=== PATIENT | female | born 2000 | race Caucasian/White ===

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

== ENCOUNTER 2018-01-13 14:21 | Emergency (ER) | payer MEDICAID ==
[2018-01-13 14:31] VITALS: BP 143/91
[2018-01-13] MEDS ORDERED: Ondansetron 4 MG/2 ML SDV IVPUSH ONE (14:39)
[2018-01-13] MEDS ORDERED: Sodium Chloride 0.9% 10 ML Syringe FLUSH PRN (14:39)
[2018-01-13] MEDS ORDERED: Famotidine 20 MG/2 ML SDV IVPUSH ONE (14:40)
[2018-01-13] MEDS ORDERED: Sodium Chloride 0.9% 1,000 ML IV SCH (14:45)
[2018-01-13 15:09] LABS: ACETAMINOPHEN 0 ug/mL (10-30)
[2018-01-13] MEDS ORDERED: HYDROmorphone 0.5 MG/0.5 ML SYRINGE IVPUSH ONE (15:40)
--- NOTE | 2018-01-13 15:53 | EDM.PDOC ---
ED HPI GENERAL MEDICAL PROBLEM - General Chief Complaint: Abdominal Pain Stated Complaint: POSS. OVERDOSE ON ASPIRIN Time Seen by Provider: 01/13/18 14:28 Source of Information: Reports: Patient History Limitations: Reports: No Limitations - History of Present Illness INITIAL COMMENTS - FREE TEXT/NARRATIVE: The patient presents with upper abdominal pain, nausea and vomiting. She did vomit some blood this morning. She says she has been dealing with a tooth infection to the right upper jaw. She took 7 extra strength tylenol last night and then at 4 and 5 am she took 3 and 2 tylenol. She then woke up at 11 am with the pain and vomiting. She went to the clinic and they called poison control and they recommend she come here to be evaluated and get a tylenol level. She has no fever, chills, cough, chest pain or shortness of breath. She developed the dental pain a few days ago. She does not have a dentist here. She did not take anything else such as aspirin. Onset: Gradual Duration: Hour(s): Location: Reports: Abdomen Quality: Reports: Sharp Severity: Mild Improves with: Reports: None Worsens with: Reports: None Associated Symptoms: Reports: Nausea/Vomiting. Denies: Chest Pain, Cough, Fever /Chills, Headaches, Shortness of Breath Epigastric Pain Score (Numeric/FACES): 6 - Related Data Allergies Allergy/AdvReac Type Severity Reaction Status Date / Time No Known Allergies Allergy Verified 01/13/18 14:31 Home Meds: Home Meds Penicillin V Potassium 500 mg PO Q6HR #40 tab 01/13/18 [Rx] traMADol HCl [Ultram] 50 - 100 mg PO Q6HR PRN #20 tablet 01/13/18 [Rx] Past Medical History - Past Health History Medical/Surgical History: Denies Medical/Surgical History Social & Family History - Tobacco Use Smoking Status *Q: Current Every Day Smoker Years of Tobacco use: 2 Packs/Tins Daily: 0.5 Used Tobacco, but Quit: No - Caffeine Use Caffeine Use: Reports: Soda - Recreational Drug Use Recreational Drug Use: No - Living Situation & Occupation Living situation: Reports: Single Occupation: Employed ED ROS GENERAL - Review of Systems Review Of Systems: See Below Constitutional: Reports: No Symptoms HEENT: Reports: Dental Pain Respiratory: Reports: No Symptoms Cardiovascular: Reports: No Symptoms Endocrine: Reports: No Symptoms GI/Abdominal: Reports: Abdominal Pain, Hematemesis, Nausea, Vomiting : Reports: No Symptoms Musculoskeletal: Reports: No Symptoms ED EXAM, GI/ABD - Physical Exam Exam: See Below Exam Limited By: No Limitations General Appearance: Alert, No Apparent Distress Ears: Normal External Exam Nose: Normal Inspection Throat/Mouth: Other (Erythema and edema with pain upon palpation to the right upper gum line) Course - Vital Signs Last Recorded V/S: Last Vital Signs Temp 97.3 F 01/13/18 14:28 Pulse 99 01/13/18 14:28 Resp 18 01/13/18 14:28 BP 143/91 H 01/13/18 14:28 Pulse Ox 100 01/13/18 14:28 - Orders/Labs/Meds Orders: Active Orders 24 hr Category Date Time Status Peripheral IV Care [RC] . DIRECTED Care 01/13/18 14:39 Active Sodium Chloride 0.9% [Normal Saline] 1,000 ml Med 01/13/18 14:45 Active IV ASDIRECTED Sodium Chloride 0.9% [Saline Flush] Med 01/13/18 14:39 Active 10 ml FLUSH ASDIRECTED PRN ED Antiemetic Medication Reflex [OM.PC] Stat Oth 01/13/18 14:39 Ordered Peripheral IV Insertion Adult [OM.PC] Stat Oth 01/13/18 14:39 Ordered Medication Orders Sodium Chloride (Normal Saline) 1,000 mls @ 125 mls/hr IV ASDIRECTED ANNIE Last Admin: 01/13/18 14:51 Dose: 125 mls/hr Sodium Chloride (Saline Flush) 10 ml FLUSH ASDIRECTED PRN PRN Reason: Keep Vein Open Last Admin: 01/13/18 14:56 Dose: 10 ml Labs: Laboratory Tests 01/13/18 01/13/18 01/13/18 Range/Units 14:38 14:38 14:38 WBC 6.82 (3.98-10.04) K/mm3 RBC 4.37 (3.98-5.22) M/mm3 Hgb 14.4 (11.2-15.7) gm/L Hct 41.3 (34.1-44.9) % MCV 94.5 (79.4-94.8) fl MCH 33.0 H (25.6-32.2) pg MCHC 34.9 (32.2-35.5) g/dl RDW Std Deviation 45.1 (36.4-46.3) fL Plt Count 304 (182-369) K/mm3 MPV 8.6 L (9.4-12.3) fl Neut % (Auto) 76.2 H (34.0-71.1) % Lymph % (Auto) 18.3 L (19.3-51.7) % [place] % (Auto) 4.8 (4.7-12.5) % Eos % (Auto) 0.3 L (0.7-5.8) Baso % (Auto) 0.3 (0.1-1.2) % Neut # (Auto) 5.19 (1.56-6.13) K/mm3 Lymph # (Auto) 1.25 (1.18-3.74) K/mm3 [place] # (Auto) 0.33 (0.24-0.36) K/mm3 Eos # (Auto) 0.02 L (0.04-0.36) K/mm3 Baso # (Auto) 0.02 (0.01-0.08) K/mm3 Sodium 140 (136-145) mEq/L Potassium 4.1 (3.5-5.1) mEq/L Chloride 104 (98-107) mEq/L Carbon Dioxide 23 (21-32) mEq/L Anion Gap 17.1 H (5-15) BUN 8 (7-18) mg/dL Creatinine 0.6 (0.55-1.02) mg/dL Est Cr Clr Drug Dosing 130.23 mL/min Estimated GFR (MDRD) > 60 (>60) mL/min BUN/Creatinine Ratio 13.3 L (14-18) Glucose 124 H (74-106) mg/dL Calcium 9.7 (8.5-10.1) mg/dL Total Bilirubin 1.4 H (0.2-1.0) mg/dL AST 38 H (15-37) U/L ALT 43 (14-59) U/L Alkaline Phosphatase 86 (46-116) U/L Total Protein 8.2 (6.4-8.2) g/dl Albumin 4.6 (3.4-5.0) g/dl Globulin 3.6 gm/dL Albumin/Globulin Ratio 1.3 (1-2) Lipase 65 L (73-393) U/L HCG, Qual Negative (NEGATIVE) Salicylates (2.8-20) mg/dL Acetaminophen 0 L (10-30) ug/mL 01/13/18 Range/Units 14:38 WBC (3.98-10.04) K/mm3 RBC (3.98-5.22) M/mm3 Hgb (11.2-15.7) gm/L Hct (34.1-44.9) % MCV (79.4-94.8) fl MCH (25.6-32.2) pg MCHC (32.2-35.5) g/dl RDW Std Deviation (36.4-46.3) fL Plt Count (182-369) K/mm3 MPV (9.4-12.3) fl Neut % (Auto) (34.0-71.1) % Lymph % (Auto) (19.3-51.7) % [place] % (Auto) (4.7-12.5) % Eos % (Auto) (0.7-5.8) Baso % (Auto) (0.1-1.2) % Neut # (Auto) (1.56-6.13) K/mm3 Lymph # (Auto) (1.18-3.74) K/mm3 [place] # (Auto) (0.24-0.36) K/mm3 Eos # (Auto) (0.04-0.36) K/mm3 Baso # (Auto) (0.01-0.08) K/mm3 Sodium (136-145) mEq/L Potassium (3.5-5.1) mEq/L Chloride (98-107) mEq/L Carbon Dioxide (21-32) mEq/L Anion Gap (5-15) BUN (7-18) mg/dL Creatinine (0.55-1.02) mg/dL Est Cr Clr Drug Dosing mL/min Estimated GFR (MDRD) (>60) mL/min BUN/Creatinine Ratio (14-18) Glucose (74-106) mg/dL Calcium (8.5-10.1) mg/dL Total Bilirubin (0.2-1.0) mg/dL AST (15-37) U/L ALT (14-59) U/L Alkaline Phosphatase (46-116) U/L Total Protein (6.4-8.2) g/dl Albumin (3.4-5.0) g/dl Globulin gm/dL Albumin/Globulin Ratio (1-2) Lipase (73-393) U/L HCG, Qual (NEGATIVE) Salicylates 1.5 L (2.8-20) mg/dL Acetaminophen (10-30) ug/mL Meds: Medications Generic Name Dose Route Start Last Admin Trade Name Freq PRN Reason Stop Dose Admin Sodium Chloride 1,000 mls @ 125 mls/hr 01/13/18 14:45 01/13/18 14:51 Normal Saline IV 125 mls/hr ASDIRECTED ANNIE Administration Sodium Chloride 10 ml 01/13/18 14:39 01/13/18 14:56 Saline Flush FLUSH 10 ml ASDIRECTED PRN Administration Keep Vein Open Discontinued Medications Generic Name Dose Route Start Last Admin Trade Name Freq PRN Reason Stop Dose Admin Famotidine 20 mg 01/13/18 14:40 01/13/18 14:57 Pepcid IVPUSH 01/13/18 14:41 20 mg ONETIME ONE Administration Hydromorphone HCl 0.5 mg 01/13/18 15:40 Dilaudid IVPUSH 01/13/18 15:41 ONETIME ONE Ondansetron HCl 4 mg 01/13/18 14:39 01/13/18 14:52 Zofran IVPUSH 01/13/18 14:40 4 mg ONETIME ONE Administration - Re-Assessments/Exams Free Text/Narrative Re-Assessment/Exam: 01/13/18 15:52 I ordered an IV NS 125mL/hr, labs, pepcid 20mg IV, zofran 4mg IV and labs. 01/13/18 15:54 Her CBC is negative. Her anion gap is elevated at 17.1. Her glucose is elevated at 124. Her total bili was slightly elevated at 1.4. Her AST was elevated slightly at 38. Her lipase is negative is 65. Her HCG is negative. Her salicylate is normal at 1.5. Her acetaminophen is normal. I called poison control and they said she was good to go. She still had pain to the right jaw. I will give her a dose of dilaudid. I will get her on some ultram and some pen VK. Departure - Departure Time of Disposition: 16:00 Disposition: Home, Self-Care 01 Condition: Good Clinical Impression: Dental abscess, Pain, dental Accidental acetaminophen overdose Qualifiers: Encounter type: initial encounter Qualified Code(s): T39.1X1A - Poisoning by 4- Aminophenol derivatives, accidental (unintentional), initial encounter - Discharge Information Prescriptions: Penicillin V Potassium 500 mg PO Q6HR #40 tab traMADol HCl [Ultram] 50 - 100 mg PO Q6HR PRN #20 tablet PRN Reason: Pain Referrals: Leti Kelly NP [Primary Care Provider] - Additional Instructions: Take the ultram as needed for pain. Take the penicillin for the infection. Do not take tylenol for at lest 24 hours. Follow up with a dentist. Please return if you are worse. - My Orders Last 24 Hours: My Active Orders 01/13/18 14:39 Peripheral IV Care [RC] . DIRECTED Sodium Chloride 0.9% [Saline Flush] 10 ml FLUSH ASDIRECTED PRN ED Antiemetic Medication Reflex [OM.PC] Stat Peripheral IV Insertion Adult [OM.PC] Stat 01/13/18 14:45 Sodium Chloride 0.9% [Normal Saline] 1,000 ml IV ASDIRECTED - Assessment/Plan Last 24 Hours: My Active Orders 01/13/18 14:39 Peripheral IV Care [RC] . DIRECTED Sodium Chloride 0.9% [Saline Flush] 10 ml FLUSH ASDIRECTED PRN ED Antiemetic Medication Reflex [OM.PC] Stat Peripheral IV Insertion Adult [OM.PC] Stat 01/13/18 14:45 Sodium Chloride 0.9% [Normal Saline] 1,000 ml IV ASDIRECTED
== END 2018-01-13 16:20 | disposition home or self-care (01) ==
LOC: JD.ED 14:21
DX: T39.1X1A Poisoning by 4-Aminophenol derivatives, accidental (unintentional), initial encounter (principal); R11.2 Nausea with vomiting, unspecified; R10.10 Upper abdominal pain, unspecified; K04.7 Periapical abscess without sinus; K08.89 Other specified disorders of teeth and supporting structures; F17.210 Nicotine dependence, cigarettes, uncomplicated; L53.9 Erythematous condition, unspecified
CPT/HCPCS: 36415; 80053; 83690; 84703; 85025; 96361; 96374; 96375; 99284; G0480; J1170; J2405; J7040; J7050

== ENCOUNTER 2018-06-04 19:56 | Emergency (ER) | payer MEDICAID ==
[2018-06-04 20:43] VITALS: BP 143/94
--- NOTE | 2018-06-04 20:47 | EDM.PDOC ---
ED HPI GENERAL MEDICAL PROBLEM - General Chief Complaint: Abdominal Pain Stated Complaint: CHEST PAIN Time Seen by Provider: 06/04/18 20:47 - History of Present Illness INITIAL COMMENTS - FREE TEXT/NARRATIVE: 18-year-old female presents emergency room with chest and abdominal pain. The pain is mostly in her chest aggravated by deep breathing. Change of position makes a little bit worse as well. She's had no nausea no vomiting minimal cough nonproductive. She's had no nausea vomiting constipation diarrhea no significant abdominal discomfort occasionally she has some discomfort at the lower rib margins usually associated with her chest discomfort. Treatments CLEANING HANDYMAN: Reports: Other (see below) Other Treatments CLEANING HANDYMAN: aleeve Upper Abdomen Pain Score (Numeric/FACES): 6 - Related Data Allergies Allergy/AdvReac Type Severity Reaction Status Date / Time No Known Allergies Allergy Verified 01/13/18 14:31 Home Meds: Home Meds Famotidine 20 mg PO Q12H #30 tablet 06/05/18 [Rx] Naproxen [Naprosyn] 500 mg PO Q12H #30 tablet 06/05/18 [Rx] Past Medical History - Past Health History Medical/Surgical History: Denies Medical/Surgical History Social & Family History - Caffeine Use Caffeine Use: Reports: Soda - Living Situation & Occupation Living situation: Reports: Single Occupation: Employed ED ROS GENERAL - Review of Systems Review Of Systems: See Below Constitutional: Reports: No Symptoms HEENT: Reports: No Symptoms Respiratory: Reports: Pleuritic Chest Pain Cardiovascular: Reports: No Symptoms Endocrine: Reports: No Symptoms GI/Abdominal: Reports: No Symptoms : Reports: No Symptoms Musculoskeletal: Reports: No Symptoms Skin: Reports: No Symptoms Neurological: Reports: No Symptoms ED EXAM, GI/ABD - Physical Exam Exam: See Below Exam Limited By: No Limitations General Appearance: Alert, No Apparent Distress Head: Atraumatic, Normocephalic Neck: Normal Inspection, Supple, Non-Tender, Full Range of Motion. No: Lymphadenopathy (L), Lymphadenopathy (R) Respiratory/Chest: No Respiratory Distress, Lungs Clear, Normal Breath Sounds, Other (Some chest wall discomfort with palpation). No: Chest Non-Tender, Decreased Breath Sounds, Crackles, Rales, Rhonchi Cardiovascular: Regular Rate, Rhythm, No Edema, No Murmur GI/Abdominal Exam: Normal Bowel Sounds, Soft, Non-Tender Back Exam: Normal Inspection, Full Range of Motion. No: CVA Tenderness (L), CVA Tenderness (R) Extremities: Normal Inspection, Normal Range of Motion, No Pedal Edema Course - Vital Signs Last Recorded V/S: Last Vital Signs Temp 36.5 C 06/04/18 20:40 Pulse 99 06/04/18 20:40 Resp 20 06/04/18 20:40 BP 143/94 H 06/04/18 20:40 Pulse Ox 100 06/04/18 20:40 - Orders/Labs/Meds Orders: Active Orders 24 hr Category Date Time Status EKG Documentation Completion [RC] URGENT Care 06/04/18 21:11 Active Abdomen Ltd [US] Stat Exams 06/05/18 00:09 Taken Chest 2V [CR] Stat Exams 06/04/18 20:56 Taken UA W/O MICROSCOPIC [URIN] Stat Lab 06/04/18 22:50 Ordered EKG 12 Lead [EK] Stat Ther 06/04/18 20:56 Ordered Labs: Laboratory Tests 06/04/18 06/04/18 06/04/18 Range/Units 21:10 21:12 23:05 WBC 6.11 (3.98-10.04) K/mm3 RBC 3.90 L (3.98-5.22) M/mm3 Hgb 12.7 (11.2-15.7) gm/L Hct 37.3 (34.1-44.9) % MCV 95.6 H (79.4-94.8) fl MCH 32.6 H (25.6-32.2) pg MCHC 34.0 (32.2-35.5) g/dl RDW Std Deviation 42.2 (36.4-46.3) fL Plt Count 319 (182-369) K/mm3 MPV 8.6 L (9.4-12.3) fl Neutrophils % (Manual) 69 H (40-60) % Band Neutrophils % 0 (0-10) % Lymphocytes % (Manual) 23 (20-40) % Atypical Lymphs % 3 % Monocytes % (Manual) 3 (2-10) % Eosinophils % (Manual) 2 (0.7-5.8) % Basophils % (Manual) 0 L (0.1-1.2) Platelet Estimate Adequate Plt Morphology Comment Normal Anisocytosis 1+ slight Microcytosis 1+ slight Macrocytosis 1+ slight RBC Morph Comment Abnormal Sodium (136-145) mEq/L Potassium (3.5-5.1) mEq/L Chloride (98-107) mEq/L Carbon Dioxide (21-32) mEq/L Anion Gap (5-15) BUN (7-18) mg/dL Creatinine (0.55-1.02) mg/dL Est Cr Clr Drug Dosing mL/min Estimated GFR (MDRD) (>60) mL/min BUN/Creatinine Ratio (14-18) Glucose (74-106) mg/dL Calcium (8.5-10.1) mg/dL Total Bilirubin (0.2-1.0) mg/dL AST (15-37) U/L ALT (14-59) U/L Alkaline Phosphatase (46-116) U/L Total Protein (6.4-8.2) g/dl Albumin (3.4-5.0) g/dl Globulin gm/dL Albumin/Globulin Ratio (1-2) Lipase (73-393) U/L Urine Color Yellow (Yellow) Urine Appearance Clear (Clear) Urine pH 6.5 (5.0-8.0) Ur Specific [place] 1.025 (1.005-1.030) Urine Protein Negative (Negative) Urine Glucose (UA) Negative (Negative) Urine Ketones Negative (Negative) Urine Occult Blood Negative (Negative) Urine Nitrite Negative (Negative) Urine Bilirubin Negative (Negative) Urine Urobilinogen 1.0 (0.2-1.0) Ur Leukocyte Esterase Negative (Negative) Urine RBC 0-5 (0-5) /hpf Urine WBC 0-5 (0-5) /hpf Ur Epithelial Cells 0-5 (0-5) /hpf Urine Bacteria Few (FEW) /hpf Urine Mucus Few (FEW) /hpf Urine HCG, Qual Negative (NEGATIVE) 06/04/18 Range/Units 23:05 WBC (3.98-10.04) K/mm3 RBC (3.98-5.22) M/mm3 Hgb (11.2-15.7) gm/L Hct (34.1-44.9) % MCV (79.4-94.8) fl MCH (25.6-32.2) pg MCHC (32.2-35.5) g/dl RDW Std Deviation (36.4-46.3) fL Plt Count (182-369) K/mm3 MPV (9.4-12.3) fl Neutrophils % (Manual) (40-60) % Band Neutrophils % (0-10) % Lymphocytes % (Manual) (20-40) % Atypical Lymphs % % Monocytes % (Manual) (2-10) % Eosinophils % (Manual) (0.7-5.8) % Basophils % (Manual) (0.1-1.2) Platelet Estimate Plt Morphology Comment Anisocytosis Microcytosis Macrocytosis RBC Morph Comment Sodium 139 (136-145) mEq/L Potassium 3.9 (3.5-5.1) mEq/L Chloride 106 (98-107) mEq/L Carbon Dioxide 25 (21-32) mEq/L Anion Gap 11.9 (5-15) BUN 12 (7-18) mg/dL Creatinine 0.7 (0.55-1.02) mg/dL Est Cr Clr Drug Dosing 110.70 mL/min Estimated GFR (MDRD) > 60 (>60) mL/min BUN/Creatinine Ratio 17.1 (14-18) Glucose 110 H (74-106) mg/dL Calcium 8.9 (8.5-10.1) mg/dL Total Bilirubin 0.5 (0.2-1.0) mg/dL AST 389 H (15-37) U/L ALT 310 H (14-59) U/L Alkaline Phosphatase 134 H (46-116) U/L Total Protein 7.0 (6.4-8.2) g/dl Albumin 4.0 (3.4-5.0) g/dl Globulin 3.0 gm/dL Albumin/Globulin Ratio 1.3 (1-2) Lipase 110 (73-393) U/L Urine Color (Yellow) Urine Appearance (Clear) Urine pH (5.0-8.0) Ur Specific [place] (1.005-1.030) Urine Protein (Negative) Urine Glucose (UA) (Negative) Urine Ketones (Negative) Urine Occult Blood (Negative) Urine Nitrite (Negative) Urine Bilirubin (Negative) Urine Urobilinogen (0.2-1.0) Ur Leukocyte Esterase (Negative) Urine RBC (0-5) /hpf Urine WBC (0-5) /hpf Ur Epithelial Cells (0-5) /hpf Urine Bacteria (FEW) /hpf Urine Mucus (FEW) /hpf Urine HCG, Qual (NEGATIVE) - Re-Assessments/Exams Free Text/Narrative Re-Assessment/Exam: 06/04/18 22:48 Patient is been waiting is been extremely busy initially we discussed this and she was complaining of chest wall pain requested a EKG and chest x-ray these are essentially unremarkable. Now they're requesting blood work because this is just how her mother's gallbladder activity they understand that we will not be able to get gallbladder ultrasound 06/05/18 00:08 Labs reviewed she has some transaminase elevation and she has a macrocytic anemia bilirubins normal ultrasound is in the department at this point and we will be able to get gallbladder ultrasound tonight 06/05/18 02:21 Gallbladder ultrasound suggestive of cholelithiasis no evidence of acute cholecystitis and hepatic steatosis. Cause of her pain is probably still chest wall we'll start her on Naprosyn and have her take famotidine she will follow- up with regular provider who will obtain surgical consult Departure - Departure Time of Disposition: 02:22 Disposition: Home, Self-Care 01 Clinical Impression: Chest wall pain, Cholelithiasis, Steatohepatitis - Discharge Information Prescriptions: Famotidine 20 mg PO Q12H #30 tablet Naproxen [Naprosyn] 500 mg PO Q12H #30 tablet Referrals: Hermelinda Hanks VEGETABLE LOADER MACHINE OPERATOR [Primary Care Provider] - Forms: ED Department Discharge Additional Instructions: Return to the emergency room with any questions or problems. Take the famotidine and naproxen as directed. Be sure and take the naproxen with meals. Follow-up with your regular provider this next week to arrange surgical follow- up. - My Orders Last 24 Hours: My Active Orders 06/04/18 20:56 Chest 2V [CR] Stat EKG 12 Lead [EK] Stat 06/04/18 21:11 EKG Documentation Completion [RC] URGENT 06/04/18 22:50 UA W/O MICROSCOPIC [URIN] Stat 06/05/18 00:09 Abdomen Ltd [US] Stat - Assessment/Plan Last 24 Hours: My Active Orders 06/04/18 20:56 Chest 2V [CR] Stat EKG 12 Lead [EK] Stat 06/04/18 21:11 EKG Documentation Completion [RC] URGENT 06/04/18 22:50 UA W/O MICROSCOPIC [URIN] Stat 06/05/18 00:09 Abdomen Ltd [US] Stat
--- NOTE | 2018-06-06 07:47 | CR ---
Chest: Two views of the chest were obtained. Comparison: Prior chest x-ray of 11/01/16. Heart size and mediastinum are normal. Lungs are clear. Bony structures are unremarkable. Impression: 1. Nothing acute is seen on two-view chest x-ray. Diagnostic code #1
--- NOTE | 2018-06-06 08:19 | US ---
Limited abdominal ultrasound: Multiple real-time images of the upper right abdomen were obtained. Comparison: No prior abdominal imaging. Findings: Liver is slightly echogenic in relation to the right kidney. Findings most likely due to mild fatty infiltration. Numerous gallstones are seen within the gallbladder. No gallbladder wall thickening is seen. No pericholecystic fluid is seen. Common bile duct at the upper limits of normal at 8 mm. No intrahepatic biliary duct dilatation is seen. Right kidney shows no hydronephrosis or mass. Right kidney length is 12.4 cm. Pancreas is incompletely seen. Visualized portions of the pancreas are within normal limits. Inferior vena cava is patent. Portal vein shows normal hepatopedal flow. Impression: 1. Probable fatty infiltration within the liver. 2. Multiple gallstones with no gallbladder wall thickening or pericholecystic fluid being seen. 3. Common bile duct at the upper limits of normal at 8 mm. No intrahepatic biliary duct dilatation is seen. 4. No additional abnormality is identified on right upper quadrant abdominal ultrasound. Diagnostic code #3 Agree with preliminary report issued by [facility] ([facility] preliminary report dictated on 06/05/18, 3:04 AM Central Time)
== END 2018-06-05 02:35 | disposition home or self-care (01) ==
LOC: JD.ED 19:56
DX: K80.20 Calculus of gallbladder without cholecystitis without obstruction (principal); K75.81 Nonalcoholic steatohepatitis (NASH); R07.89 Other chest pain
CPT/HCPCS: 36415; 71046; 71046-26; 76705; 76705-26; 80053; 81001; 81025; 83690; 85007; 85027; 93005; 93010; 99284-25; 99285-25

== ENCOUNTER 2018-12-31 14:15 | Emergency (ER) | payer SELFPAY ==
[2018-12-31 14:31] VITALS: BP 143/84
[2018-12-31] MEDS ORDERED: HYDROmorphone 1 MG/ML Syringe IVPUSH STA (14:47)
[2018-12-31] MEDS ORDERED: Sodium Chloride 0.9% 10 ML Syringe FLUSH PRN (14:47)
[2018-12-31] MEDS ORDERED: Ondansetron 4 MG/2 ML SDV IVPUSH ONE (14:47)
[2018-12-31] MEDS ORDERED: Sodium Chloride 0.9% 1,000 ML IV SCH (15:00)
--- NOTE | 2018-12-31 15:14 | EDM.PDOC ---
ED HPI GENERAL MEDICAL PROBLEM - General Chief Complaint: Abdominal Pain Stated Complaint: ABDOMINAL PAIN Time Seen by Provider: 12/31/18 14:35 Source of Information: Reports: Patient, RN Notes Reviewed History Limitations: Reports: No Limitations - History of Present Illness INITIAL COMMENTS - FREE TEXT/NARRATIVE: Patient is a 18-year-old female who presents to the ED for the evaluation of abdominal pain. The patient states this is mostly in her epigastrium and right upper quadrant. The patient states that the pain started last night, however this morning she started puking, where she had 4 episodes and 2 of these had a little bit of blood in them, she noted this to be dark red in nature. She does have a prior cholecystectomy. The patient states she is tolerating oral fluids okay and she is able to drink Gatorade, however she has not had any solid food. She has had 2-3 episodes of diarrhea as well. She states she feels chilled but does not have any actual fever at this time. She denies any chest pain or shortness of breath. She did not eat any question of fluids last night that would've attributive to this illness, as her friend present in the room had the same food and is not sick. He has not had any contact with any other like sick people as well. She states her last menstrual period was roughly 2 weeks ago. She denies any dysuria, frequency or urgency at this time. Right Lower Abdomen Pain Score (Numeric/FACES): 8 - Related Data Allergies Allergy/AdvReac Type Severity Reaction Status Date / Time crab Allergy Airway Verified 12/31/18 14:29 Tightness latex Allergy Hives Verified 12/31/18 14:29 pineapple Allergy Airway Verified 12/31/18 14:29 Tightness Home Meds: Home Meds Ondansetron [Zofran ODT] 4 mg PO Q8H PRN #28 tab.dis 12/31/18 [Rx] Past Medical History - Past Health History Medical/Surgical History: Denies Medical/Surgical History HEENT History: Reports: Other (See Below) Other HEENT History: pharyngitis, tonsillectomy, ear surgery Cardiovascular History: Reports: None Respiratory History: Reports: None Gastrointestinal History: Reports: None Genitourinary History: Reports: Other (See Below) Other Genitourinary History: hestitency LEAK PATCHER History: Reports: Other (See Below) Other LEAK PATCHER History: bacterial vaginosis, dysnmenorrhea, menorrhagia Musculoskeletal History: Reports: None Neurological History: Reports: None Psychiatric History: Reports: None Endocrine/Metabolic History: Reports: None Hematologic History: Reports: Other (See Below) Other Hematologic History: bone marrow procedure Immunologic History: Reports: None Oncologic (Cancer) History: Reports: None Dermatologic History: Reports: None - Past Surgical History Head Surgeries/Procedures: Reports: None Cardiovascular Surgical History: Reports: None Respiratory Surgical History: Reports: None GI Surgical History: Reports: Cholecystectomy Endocrine Surgical History: Reports: None Neurological Surgical History: Reports: None Musculoskeletal Surgical History: Reports: None Oncologic Surgical History: Reports: None Dermatological Surgical History: Reports: None Social & Family History - Tobacco Use Smoking Status *Q: Current Every Day Smoker Years of Tobacco use: 4 Packs/Tins Daily: 0.5 Used Tobacco, but Quit: No - Caffeine Use Caffeine Use: Reports: None - Recreational Drug Use Recreational Drug Use: No - Living Situation & Occupation Living situation: Reports: Single Occupation: Employed ED ROS GENERAL - Review of Systems Review Of Systems: See Below Constitutional: Reports: Chills, Decreased Appetite HEENT: Reports: No Symptoms Respiratory: Reports: No Symptoms Cardiovascular: Reports: No Symptoms Endocrine: Reports: No Symptoms GI/Abdominal: Reports: Abdominal Pain (Upper abd pain), Diarrhea, Hematemesis ( dark blood in 2 emesis of 4 emesis this AM), Nausea, Vomiting. Denies: Constipation : Reports: No Symptoms Musculoskeletal: Reports: No Symptoms Skin: Reports: No Symptoms Neurological: Reports: No Symptoms Psychiatric: Reports: No Symptoms Hematologic/Lymphatic: Reports: No Symptoms ED EXAM, GI/ABD - Physical Exam Exam: See Below Exam Limited By: No Limitations General Appearance: Alert, WD/WN, No Apparent Distress Eyes: Bilateral: Normal Appearance Ears: Normal External Exam Nose: Normal Inspection Throat/Mouth: Normal Inspection, Normal Lips, Normal Teeth (Dentition is in poor repair. Multiple teeth missing), Normal Gums, Normal Oropharynx, Normal Voice, No Airway Compromise Head: Atraumatic, Normocephalic Neck: Normal Inspection, Supple, Non-Tender, Full Range of Motion Respiratory/Chest: No Respiratory Distress, Lungs Clear, Normal Breath Sounds, No Accessory Muscle Use, Chest Non-Tender Cardiovascular: Normal Peripheral Pulses, Regular Rate, Rhythm, No Murmur GI/Abdominal Exam: Normal Bowel Sounds, Soft, No Distention, No Mass, Tender ( Entire upper abdomen is diffusely tender.) Extremities: Normal Inspection, Normal Capillary Refill Neurological: Alert, Oriented, Normal Cognition, No Motor/Sensory Deficits Psychiatric: Normal Affect, Normal Mood Skin Exam: Warm, Dry, Intact, Normal Color, No Rash Course - Vital Signs Last Recorded V/S: Last Vital Signs Temp 97.4 F 12/31/18 14:26 Pulse 83 12/31/18 14:30 Resp 18 12/31/18 14:26 BP 143/84 H 12/31/18 14:30 Pulse Ox 98 12/31/18 14:30 - Orders/Labs/Meds Orders: Active Orders 24 hr Category Date Time Status Peripheral IV Care [RC] . DIRECTED Care 12/31/18 14:47 Ordered Sodium Chloride 0.9% [Normal Saline] 1,000 ml Med 12/31/18 15:00 Ordered IV ASDIRECTED Sodium Chloride 0.9% [Saline Flush] Med 12/31/18 14:47 Ordered 10 ml FLUSH ASDIRECTED PRN Peripheral IV Insertion Adult [OM.PC] Routine Oth 12/31/18 14:47 Ordered Medication Orders Sodium Chloride (Normal Saline) 1,000 mls @ 999 mls/hr IV ASDIRECTED ANNIE Last Admin: 12/31/18 14:59 Dose: 999 mls/hr Sodium Chloride (Saline Flush) 10 ml FLUSH ASDIRECTED PRN PRN Reason: Keep Vein Open Last Admin: 12/31/18 14:59 Dose: 10 ml Labs: Laboratory Tests 12/31/18 12/31/18 12/31/18 Range/Units 14:25 14:25 15:00 WBC 6.83 (3.98-10.04) K/mm3 RBC 3.98 (3.98-5.22) M/mm3 Hgb 13.3 (11.2-15.7) gm/L Hct 37.5 (34.1-44.9) % MCV 94.2 (79.4-94.8) fl MCH 33.4 H (25.6-32.2) pg MCHC 35.5 (32.2-35.5) g/dl RDW Std Deviation 43.7 (36.4-46.3) fL Plt Count 236 (182-369) K/mm3 MPV 8.8 L (9.4-12.3) fl Neutrophils % (Manual) 75 H (40-60) % Band Neutrophils % 0 (0-10) % Lymphocytes % (Manual) 17 L (20-40) % Atypical Lymphs % 0 % Monocytes % (Manual) 8 (2-10) % Eosinophils % (Manual) 0 L (0.7-5.8) % Basophils % (Manual) 0 L (0.1-1.2) Platelet Estimate Adequate Plt Morphology Comment Normal RBC Morph Comment Normal Sodium (136-145) mEq/L Potassium (3.5-5.1) mEq/L Chloride (98-107) mEq/L Carbon Dioxide (21-32) mEq/L Anion Gap (5-15) BUN (7-18) mg/dL Creatinine (0.55-1.02) mg/dL Est Cr Clr Drug Dosing mL/min Estimated GFR (MDRD) (>60) mL/min BUN/Creatinine Ratio (14-18) Glucose (74-106) mg/dL Calcium (8.5-10.1) mg/dL Total Bilirubin (0.2-1.0) mg/dL AST (15-37) U/L ALT (14-59) U/L Alkaline Phosphatase (46-116) U/L Total Protein (6.4-8.2) g/dl Albumin (3.4-5.0) g/dl Globulin gm/dL Albumin/Globulin Ratio (1-2) Lipase (73-393) U/L Urine Color Yellow (Yellow) Urine Appearance Clear (Clear) Urine pH 8.0 (5.0-8.0) Ur Specific [place] 1.020 (1.005-1.030) Urine Protein Negative (Negative) Urine Glucose (UA) Negative (Negative) Urine Ketones Negative (Negative) Urine Occult Blood Negative (Negative) Urine Nitrite Negative (Negative) Urine Bilirubin Negative (Negative) Urine Urobilinogen 0.2 (0.2-1.0) Ur Leukocyte Esterase Negative (Negative) Urine RBC Not seen (0-5) /hpf Urine WBC Not seen (0-5) /hpf Ur Epithelial Cells 0-5 (0-5) /hpf Urine Bacteria Rare (FEW) /hpf Urine Mucus Not seen (FEW) /hpf Urine HCG, Qual Negative (NEGATIVE) 12/31/18 Range/Units 15:00 WBC (3.98-10.04) K/mm3 RBC (3.98-5.22) M/mm3 Hgb (11.2-15.7) gm/L Hct (34.1-44.9) % MCV (79.4-94.8) fl MCH (25.6-32.2) pg MCHC (32.2-35.5) g/dl RDW Std Deviation (36.4-46.3) fL Plt Count (182-369) K/mm3 MPV (9.4-12.3) fl Neutrophils % (Manual) (40-60) % Band Neutrophils % (0-10) % Lymphocytes % (Manual) (20-40) % Atypical Lymphs % % Monocytes % (Manual) (2-10) % Eosinophils % (Manual) (0.7-5.8) % Basophils % (Manual) (0.1-1.2) Platelet Estimate Plt Morphology Comment RBC Morph Comment Sodium 142 (136-145) mEq/L Potassium 3.0 L (3.5-5.1) mEq/L Chloride 103 (98-107) mEq/L Carbon Dioxide 27 (21-32) mEq/L Anion Gap 15.0 (5-15) BUN 5 L (7-18) mg/dL Creatinine 0.6 (0.55-1.02) mg/dL Est Cr Clr Drug Dosing 134.58 mL/min Estimated GFR (MDRD) > 60 (>60) mL/min BUN/Creatinine Ratio 8.3 L (14-18) Glucose 125 H (74-106) mg/dL Calcium 9.3 (8.5-10.1) mg/dL Total Bilirubin 1.4 H (0.2-1.0) mg/dL AST 30 (15-37) U/L ALT 27 (14-59) U/L Alkaline Phosphatase 95 (46-116) U/L Total Protein 7.1 (6.4-8.2) g/dl Albumin 3.7 (3.4-5.0) g/dl Globulin 3.4 gm/dL Albumin/Globulin Ratio 1.1 (1-2) Lipase 71 L (73-393) U/L Urine Color (Yellow) Urine Appearance (Clear) Urine pH (5.0-8.0) Ur Specific [place] (1.005-1.030) Urine Protein (Negative) Urine Glucose (UA) (Negative) Urine Ketones (Negative) Urine Occult Blood (Negative) Urine Nitrite (Negative) Urine Bilirubin (Negative) Urine Urobilinogen (0.2-1.0) Ur Leukocyte Esterase (Negative) Urine RBC (0-5) /hpf Urine WBC (0-5) /hpf Ur Epithelial Cells (0-5) /hpf Urine Bacteria (FEW) /hpf Urine Mucus (FEW) /hpf Urine HCG, Qual (NEGATIVE) Meds: Medications Generic Name Dose Route Start Last Admin Trade Name Freq PRN Reason Stop Dose Admin Sodium Chloride 1,000 mls @ 999 mls/hr 12/31/18 15:00 12/31/18 14:59 Normal Saline IV 999 mls/hr ASDIRECTED ANNIE Administration Sodium Chloride 10 ml 12/31/18 14:47 12/31/18 14:59 Saline Flush FLUSH 10 ml ASDIRECTED PRN Administration Keep Vein Open Discontinued Medications Generic Name Dose Route Start Last Admin Trade Name Freq PRN Reason Stop Dose Admin Al Hydroxide/Mg Hydroxide 30 0 ml 12/31/18 16:19 12/31/18 16:33 ml/ Lidocaine HCl 15 ml PO 12/31/18 16:20 45 ml ONETIME ONE Administration Hydromorphone HCl 0.5 mg 12/31/18 14:47 12/31/18 14:59 Dilaudid IVPUSH 12/31/18 14:48 0.5 mg ONETIME STA Administration Hydromorphone HCl 0.5 mg 12/31/18 17:24 Dilaudid IVPUSH 12/31/18 17:25 ONETIME ONE Ondansetron HCl 4 mg 12/31/18 14:47 12/31/18 14:59 Zofran IVPUSH 12/31/18 14:48 4 mg ONETIME ONE Administration Potassium Chloride 40 meq 12/31/18 16:19 12/31/18 16:32 Klor-Con M20 PO 12/31/18 16:20 40 meq ONETIME ONE Administration - Re-Assessments/Exams Free Text/Narrative Re-Assessment/Exam: 12/31/18 15:17 Patient presents to the ED for the evaluation of upper abdomen pain. I have ordered an IV to be placed, 0.5 mg IV Dilaudid for pain relief, 4 mg IV Zofran for nausea relief, a UA, CBC, CMP, lipase and urine hCG for initial evaluation. I'm suspicious this is might be a gastroenteritis in nature, so will hold off on imaging at this time. 12/31/18 16:13 Patient's labs have returned, her CBC is within normal limits, her urinalysis is not remarkable for any sort of infection at this time. Her metabolic panel shows that she has a low level of potassium at 3.0. She will receive some potassium supplementation in the ER today. 12/31/18 16:39 Patient was reassessed at bedside and states that her pain was not much better. However her nausea was a little bit more controlled. I have ordered a GI cocktail and 40 mEq potassium to be given for further treatment. Her laboratory evaluation was unremarkable for any sort of bacterial infection which would be suggestive of viral gastroenteritis in nature. 12/31/18 17:30 The case was discussed with Dr. Braun, and he does agree that this sounds like a gastroenteritis. He recommends clear liquid diet for the next 24-48 hours with advance to bland as tolerated. I will provide the patient with some tablets of Zofran. I have also recommended that she do a close follow-up with Hermelinda Hanks sometime within the next week [facility]. Departure - Departure Time of Disposition: 17:31 Disposition: Home, Self-Care 01 Condition: Fair Clinical Impression: Gastroenteritis - Discharge Information *PRESCRIPTION DRUG MONITORING PROGRAM REVIEWED*: No *COPY OF PRESCRIPTION DRUG MONITORING REPORT IN PATIENT [place]: No Instructions: Viral Gastroenteritis, Adult, [id number] Referrals: Hermelinda Hanks, SKIVER MACHINE OPERATOR [Primary Care Provider] - Forms: ED Department Discharge Additional Instructions: You have been evaluated in the ED for nausea/vomiting/diarrhea. It is likely that this is caused from a viral gastroenteritis. You have received IV fluid in the ED to help with the dehydration from the vomiting and diarrhea. Over the next 24-48 hours please try to limit diet to clear liquids or bland diet to alleviate symptoms of nausea/vomiting/diarrhea. Please use the Zofran every 8 hours as needed for nausea. This has been electronically prescribed to the [facility] [employer] [facility]. Recommend close follow-up in the clinic with your t primary care provider his next week if your symptoms are not much better. Please return to the ED if your symptoms should change or worsen. - My Orders Last 24 Hours: My Active Orders 12/31/18 14:47 Peripheral IV Care [RC] . DIRECTED Sodium Chloride 0.9% [Saline Flush] 10 ml FLUSH ASDIRECTED PRN Peripheral IV Insertion Adult [OM.PC] Routine 12/31/18 15:00 Sodium Chloride 0.9% [Normal Saline] 1,000 ml IV ASDIRECTED - Assessment/Plan Last 24 Hours: My Active Orders 12/31/18 14:47 Peripheral IV Care [RC] . DIRECTED Sodium Chloride 0.9% [Saline Flush] 10 ml FLUSH ASDIRECTED PRN Peripheral IV Insertion Adult [OM.PC] Routine 12/31/18 15:00 Sodium Chloride 0.9% [Normal Saline] 1,000 ml IV ASDIRECTED
[2018-12-31] MEDS ORDERED: Alum Hydrox/Mag Hydrox/Simeth 30 ML, Lidocaine 2% 15 ML PO ONE ×2 (16:19)
[2018-12-31] MEDS ORDERED: Potassium Chloride 20 MEQ Tab.ER PO ONE (16:19)
[2018-12-31] MEDS ORDERED: HYDROmorphone 1 MG/ML Syringe IVPUSH ONE (17:24)
== END 2018-12-31 17:46 | disposition home or self-care (01) ==
LOC: JD.ED 14:15
DX: K52.9 Noninfective gastroenteritis and colitis, unspecified (principal); F17.210 Nicotine dependence, cigarettes, uncomplicated; Z91.018 Allergy to other foods; Z91.040 Latex allergy status
CPT/HCPCS: 36415; 80053; 81001; 81025; 83690; 85007; 85027; 96361; 96374; 96375; 96376; 99284; A9270; J1170; J2405; J7040

== ENCOUNTER 2019-09-03 15:24 | Emergency (ER) | payer OTHER ==
--- NOTE | 2019-09-03 15:47 | EDM.PDOC ---
ED HPI GENERAL MEDICAL PROBLEM - General Chief Complaint: Head Injury Stated Complaint: HEAD INJURY Time Seen by Provider: 09/03/19 15:39 Source of Information: Reports: Patient, RN Notes Reviewed History Limitations: Reports: No Limitations - History of Present Illness INITIAL COMMENTS - FREE TEXT/NARRATIVE: Patient is a 19-year-old female who presents to the ED for the evaluation of a headache post head injury. Patient notes that last night she slipped on the ice , and landed on her chin and hit the left side of her face. She does not characterize any sort of loss of consciousness, nor did she have any dental trauma or lacerations on her lips or tongue. She states that today she has a headache, that did not really get much better after taking 600 mg ibuprofen this morning at 9AM. She notes some nausea and mild dizziness as well. Patient denies any history of chronic headaches. Headache Pain Score (Numeric/FACES): 8 - Related Data Allergies Allergy/AdvReac Type Severity Reaction Status Date / Time crab Allergy Airway Verified 09/03/19 15:41 Tightness latex Allergy Hives Verified 09/03/19 15:41 pineapple Allergy Airway Verified 09/03/19 15:41 Tightness Home Meds: Home Meds . [No Known Home Meds] 03/19/19 [History] Past Medical History HEENT History: Reports: Other (See Below) Other HEENT History: pharyngitis, tonsillectomy, ear surgery Genitourinary History: Reports: Other (See Below) Other Genitourinary History: hesitancy [employer] History: Reports: Other (See Below) Other [employer] History: bacterial vaginosis, dysnmenorrhea, menorrhagia Hematologic History: Reports: Other (See Below) Other Hematologic History: bone marrow procedure - Past Surgical History GI Surgical History: Reports: Cholecystectomy Social & Family History - Tobacco Use Smoking Status *Q: Current Every Day Smoker Years of Tobacco use: 4 Packs/Tins Daily: 0.5 - Caffeine Use Caffeine Use: Reports: None - Recreational Drug Use Recreational Drug Use: No - Living Situation & Occupation Living situation: Reports: Single Occupation: Employed ED ROS GENERAL - Review of Systems Review Of Systems: See Below Constitutional: Denies: Fever, Chills Respiratory: Denies: Shortness of Breath Cardiovascular: Denies: Chest Pain GI/Abdominal: Reports: Nausea. Denies: Vomiting Skin: Denies: Wound Neurological: Reports: Dizziness, Headache. Denies: Confusion, Difficulty Walking ED EXAM, HEAD INJURY - Physical Exam Exam: See Below Exam Limited By: No Limitations General Appearance: Alert, WD/WN, No Apparent Distress Head: Atraumatic, Normocephalic Nexus Criteria: No: Posterior, Midline Cervical Tenderness, Evidence of Intoxication, Altered Level of Consciousness, Focal Neurological Deficit, Painful Distraction Injuries Eyes: Bilateral Eye: EOMI, Normal Inspection, PERRL Ears: Normal External Exam, Normal Canal, Hearing Grossly Normal, Normal TMs Nose: Normal Inspection Throat/Mouth: Normal Inspection, Normal Lips, Normal Teeth (pt is not missing any teeth d/t accident, otherwise dentition in fair repair.), Normal Gums, Normal Oropharynx, Normal Voice, No Airway Compromise Neck: Non-Tender, Full Range of Motion, Normal Alignment, Normal Inspection Respiratory: No Respiratory Distress, Lungs Clear, Normal Breath Sounds, No Accessory Muscle Use, Chest Non-Tender Cardiovascular: Normal Peripheral Pulses, Regular Rate, Rhythm, No Edema, No Murmur GI/Abdominal Exam: Normal Bowel Sounds, Soft, Non-Tender, No Distention, No Mass Extremities: Normal Inspection, Normal Capillary Refill Neurologic: inventory control coordinator II-XII nml As Tested, No Motor/Sensory Deficits, Alert, Normal Mood/Affect, Oriented x 3 Skin: Normal Color, Warm/Dry - [place] Coma Score Best Eye Response (Lorenza): (4) Open Spontaneously Best Verbal Response ([place]): (5) Oriented Best Motor Response ([place]): (6) Obeys Commands Lorenza Total: 15 Course - Vital Signs Last Recorded V/S: Last Vital Signs Temp 97.9 F 09/03/19 15:39 Pulse 99 09/03/19 15:39 Resp 16 09/03/19 15:39 BP 144/88 H 09/03/19 15:39 Pulse Ox 98 09/03/19 15:39 - Orders/Labs/Meds Orders: Active Orders 24 hr Category Date Time Status Peripheral IV Care [RC] . DIRECTED Care 09/03/19 15:56 Ordered Sodium Chloride 0.9% [Normal Saline] 1,000 ml Med 09/03/19 16:00 Ordered IV ASDIRECTED Sodium Chloride 0.9% [Saline Flush] Med 09/03/19 15:55 Ordered 10 ml FLUSH ASDIRECTED PRN Peripheral IV Insertion Adult [OM.PC] Routine Oth 09/03/19 15:56 Ordered Medication Orders Sodium Chloride (Normal Saline) 1,000 mls @ 999 mls/hr IV ASDIRECTED ANNIE Last Admin: 09/03/19 16:04 Dose: 999 mls/hr Sodium Chloride (Saline Flush) 10 ml FLUSH ASDIRECTED PRN PRN Reason: Keep Vein Open Last Admin: 09/03/19 16:05 Dose: 10 ml Meds: Medications Generic Name Dose Route Start Last Admin Trade Name Freq PRN Reason Stop Dose Admin Sodium Chloride 1,000 mls @ 999 mls/hr 09/03/19 16:00 09/03/19 16:04 Normal Saline IV 999 mls/hr ASDIRECTED ANNIE Administration Sodium Chloride 10 ml 09/03/19 15:55 09/03/19 16:05 Saline Flush FLUSH 10 ml ASDIRECTED PRN Administration Keep Vein Open Discontinued Medications Generic Name Dose Route Start Last Admin Trade Name Freq PRN Reason Stop Dose Admin Diphenhydramine HCl 25 mg 09/03/19 15:55 09/03/19 16:06 Benadryl IVPUSH 09/03/19 15:56 25 mg ONETIME ONE Administration Ketorolac Tromethamine 30 mg 09/03/19 15:55 09/03/19 16:05 Toradol IVPUSH 09/03/19 15:56 30 mg ONETIME ONE Administration Metoclopramide HCl 10 mg 09/03/19 15:55 09/03/19 16:07 Reglan IVPUSH 09/03/19 15:56 10 mg ONETIME ONE Administration - Re-Assessments/Exams Free Text/Narrative Re-Assessment/Exam: 09/03/19 16:01 Patient presents to the ED for a headache status post head injury she obtained yesterday. Did order IV to be placed with 30 mg IV Toradol, 25 mg IV Benadryl, and 10 mg IV Reglan for headache management. I do believe that the patient is suffering from postconcussion headache. We will treat her as such. 09/03/19 17:02 Patient was reassessed at bedside, states she is feeling much better. We will discharge her home with general recommendations. Departure - Departure Time of Disposition: 17:02 Disposition: Home, Self-Care 01 Condition: Fair Clinical Impression: Post-concussion headache - Discharge Information *PRESCRIPTION DRUG MONITORING PROGRAM REVIEWED*: No *COPY OF PRESCRIPTION DRUG MONITORING REPORT IN PATIENT [place]: No Instructions: Post-Concussion Syndrome, [id number] Referrals: Hermelinda Hanks FINANCIAL RESERVE CLERK [Primary Care Provider] - Forms: ED Department Discharge Additional Instructions: You were evaluated in the ER today regarding your headache, dizziness, nausea. It is likely that you suffered a concussion when you fell yesterday. You were given some IV fluids, and IV medications for relief of your headache. This seemed to help provide you pretty good relief. Over the next few days, limit screen time as much as possible, as this helps give the brain time to heal. Recommend that you try not to have a lot of mental stimulation as well. You may take 600 mg ibuprofen every 6 hours as needed for further headache relief. Please return to the ER at any time if your symptoms change or worsen. Sepsis Event Note - Evaluation Sepsis Screening Result: No Definite Risk - Focused Exam Vital Signs: Vital Signs Temp Pulse Resp BP Pulse Ox 09/03/19 15:39 97.9 F 99 16 144/88 H 98 Date Exam was Performed: 09/03/19 Time Exam was Performed: 17:02 - My Orders Last 24 Hours: My Active Orders 09/03/19 15:55 Sodium Chloride 0.9% [Saline Flush] 10 ml FLUSH ASDIRECTED PRN 09/03/19 15:56 Peripheral IV Care [RC] . DIRECTED Peripheral IV Insertion Adult [OM.PC] Routine 09/03/19 16:00 Sodium Chloride 0.9% [Normal Saline] 1,000 ml IV ASDIRECTED - Assessment/Plan Last 24 Hours: My Active Orders 09/03/19 15:55 Sodium Chloride 0.9% [Saline Flush] 10 ml FLUSH ASDIRECTED PRN 09/03/19 15:56 Peripheral IV Care [RC] . DIRECTED Peripheral IV Insertion Adult [OM.PC] Routine 09/03/19 16:00 Sodium Chloride 0.9% [Normal Saline] 1,000 ml IV ASDIRECTED
[2019-09-03] MEDS ORDERED: diphenhydrAMINE 50 MG/ML SDV IVPUSH ONE (15:55)
[2019-09-03] MEDS ORDERED: Ketorolac 30 MG/ML SDV IVPUSH ONE (15:55)
[2019-09-03] MEDS ORDERED: Metoclopramide 10 MG/2 ML SDV IVPUSH ONE (15:55)
[2019-09-03] MEDS ORDERED: Sodium Chloride 0.9% 10 ML Syringe FLUSH PRN (15:55)
[2019-09-03] MEDS ORDERED: Sodium Chloride 0.9% 1,000 ML IV SCH (16:00)
[2019-09-03 17:16] VITALS: BP 121/73; PULSE 81
== END 2019-09-03 17:15 | disposition home or self-care (01) ==
LOC: JD.ED 15:24
DX: G44.309 Post-traumatic headache, unspecified, not intractable (principal); F17.210 Nicotine dependence, cigarettes, uncomplicated; Z91.040 Latex allergy status; Z91.018 Allergy to other foods; Z91.013 Allergy to seafood; W01.10XA Fall on same level from slipping, tripping and stumbling with subsequent striking against unspecified object, initial encounter
CPT/HCPCS: 96361; 96374; 96375; 99283; J1200; J1885; J2765; J7030

== ENCOUNTER 2020-06-18 15:54 | Inpatient (IN) | payer MEDICAID ==
[2020-06-18] MEDS ORDERED: Sodium Chloride 0.9% 10 ML Syringe FLUSH PRN (16:22)
[2020-06-18] MEDS ORDERED: Ondansetron 4 MG/2 ML SDV IVPUSH PRN (16:22)
[2020-06-18] MEDS ORDERED: Nalbuphine 10 MG/ML Syringe IVPUSH PRN (16:22)
--- NOTE | 2020-06-18 16:28 | PCM.LDHP ---
L&D History of Present Illness - General Date of Service: 06/18/20 Admit Problem/Dx: Patient Status Order with Admit Dx/Problem 06/18/20 16:23 Patient Status [ADT] Routine Admission Diagnosis/Problem Admission Diagnosis/Problem Abnormal test Source of Information: Patient History Limitations: Reports: No Limitations - History of Present Illness Introduction:: Patient is a 20 y/o at 37 1/7 wks who presents for IOL after abnormal testing. Patient has a history of CHTN, off medications currently, for which she was undergoing an NST in clinic today. Also noted to have decreased movement the last few days. NST done and non reactive. Follow up BPP was 12/05 (off for movement and tone). Given total score was sent to L&D for IOL. Otherwise doing well. - Related Data Allergies/Adverse Reactions: Allergies Allergy/AdvReac Type Severity Reaction Status Date / Time crab Allergy Airway Verified 06/18/20 17:21 Tightness latex Allergy Hives Verified 06/18/20 17:21 pineapple Allergy Airway Verified 06/18/20 17:21 Tightness Home Medications: Home Meds Vits #93/Iron Fum/FA [ Formula Tablet] 1 tab PO DAILY 06/04/20 [History] Aspirin 81 mg PO DAILY 06/18/20 [History] Past Medical History Cardiovascular History: Reports: Hypertension : 1 Para: 0 LMP (Approximate): - Past Surgical History HEENT Surgical History: Reports: Tonsillectomy GI Surgical History: Reports: Cholecystectomy Social & Family History - Tobacco Use Tobacco Use Status *Q: Former Tobacco User - Caffeine Use Caffeine Use: Reports: None - Alcohol Use Alcohol Use History: No - Recreational Drug Use Recreational Drug Use: No - Living Situation & Occupation Living situation: Reports: Single Occupation: Employed H&P Review of Systems - Review of Systems: Review Of Systems: See Below General: Reports: No Symptoms Pulmonary: Reports: No Symptoms Cardiovascular: Reports: No Symptoms Gastrointestinal: Reports: No Symptoms Genitourinary: Reports: No Symptoms Musculoskeletal: Reports: No Symptoms Psychiatric: Reports: No Symptoms Neurological: Reports: No Symptoms L&D Exam - Exam Exam: See Below - OB Specific Contraction Intensity: Irritability Movement: Active Heart Tones: Present Heart Tones per Min: 150 Heart Rate (FHR) Variability: Moderate (6-25 bmp) Presentation: Vertex - Calvo Score Calvo Score Cervix Position: Midposition Calvo Score Consistency: Medium Calvo Score Effacement: 51-70% Calvo Score Dilation: 1-2 cm Calvo Score Infant's Station: -2 Calvo Score Total: 6 - Exam General: Alert, Oriented, Cooperative Lungs: Clear to Auscultation, Normal Respiratory Effort Cardiovascular: Regular Rate, Regular Rhythm GI/Abdominal Exam: Soft, Non-Tender Genitourinary: Normal external exam Extremities: Normal Inspection Skin: Warm, Dry, Intact - Patient Data Result Diagrams: 06/18/20 16:38 06/18/20 16:38 - Problem List (1) 37 weeks gestation of SNOMED Code(s): 25964875 ICD Code: Z3A.37 - 37 WEEKS GESTATION OF Status: Acute Current Visit: Yes (2) Hypertension SNOMED Code(s): 47526176 ICD Code: I10 - ESSENTIAL (PRIMARY) HYPERTENSION Status: Acute Current Visit: Yes Qualifiers: Hypertension type: unspecified Qualified Code(s): I10 - Essential (primary) hypertension (3) Abnormal test SNOMED Code(s): 466101063, 868685899 ICD Code: O28.9 - UNSP ABNORMAL FINDINGS ON SCREENING OF MOTHER Status: Acute Current Visit: Yes (4) Rh negative state in antepartum period SNOMED Code(s): 366511940 ICD Code: O26.899 - OTH RELATED CONDITIONS, UNSPECIFIED TRIMESTER; Z67.91 - UNSPECIFIED BLOOD TYPE, RH NEGATIVE Status: Acute Current Visit: Yes Problem List Initiated/Reviewed/Updated: Yes Orders Last 24hrs: Active Orders 24 hr Category Date Time Status Patient Status [ADT] Routine ADT 06/18/20 16:23 Ordered Communication Order [RC] ASDIRECTED Care 06/18/20 16:23 Ordered Communication Order [RC] ASDIRECTED Care 06/18/20 16:23 Ordered Communication Order [RC] ASDIRECTED Care 06/18/20 16:23 Ordered Heart Tones [RC] ASDIRECTED Care 06/18/20 16:23 Ordered Monitoring [RC] INTERMITTENT Care 06/18/20 16:23 Ordered Non Stress Test [RC] PER UNIT ROUTINE Care 06/18/20 16:23 Ordered Notify Provider [RC] ASDIRECTED Care 06/18/20 16:23 Ordered Notify Provider [RC] PRN Care 06/18/20 16:23 Ordered Peripheral IV Care [RC] . DIRECTED Care 06/18/20 16:23 Ordered Up ad Rashmi [RC] ASDIRECTED Care 06/18/20 16:24 Ordered Vaginal Exam [RC] ASDIRECTED Care 06/18/20 16:23 Ordered Vital Signs [RC] ASDIRECTED Care 06/18/20 16:23 Ordered Regular Diet [DIET] Diet 06/18/20 Dinner Ordered CBC W/O DIFF,HEMOGRAM [HEME] Routine Lab 06/18/20 16:22 Ordered COMPREHENSIVE METABOLIC PN,CMP [CHEM] Routine Lab 06/18/20 16:22 Ordered CORONAVIRUS COVID-19 GIORGIO [MOLEC] Stat Lab 06/18/20 16:24 Ordered RAPID PLASMA REAGIN,RPR [CHEM] Routine Lab 06/18/20 16:23 Ordered TYPE AND SCREEN [BBK] Routine Lab 06/18/20 16:22 Ordered Lactated Ringers [Ringers, Lactated] 1,000 ml Med 06/18/20 16:30 Ordered IV ASDIRECTED Nalbuphine [Nubain] Med 06/18/20 16:22 Ordered 10 mg IVPUSH Q2H PRN Ondansetron [Zofran] Med 06/18/20 16:22 Ordered 4 mg IVPUSH Q4H PRN Oxytocin/Lactated Ringers [Pitocin in LR 10 Units/1,000 Med 06/18/20 16:30 Ordered ML] 10 unit in 1,000 ml IV .CONTINUOUS Oxytocin/Lactated Ringers [Pitocin in LR 10 Units/1,000 Med 06/18/20 16:30 Ordered ML] 10 unit in 1,000 ml IV TITRATE Sodium Chloride 0.9% [Saline Flush] Med 06/18/20 16:22 Ordered 10 ml FLUSH ASDIRECTED PRN Electronic Heart Tones Ext w TOCO [WOMSER] Oth 06/18/20 16:23 Ordered Routine Electronic Heart Tones Internal [WOMSER] Per Unit Oth 06/18/20 16:23 Ordered Routine Peripheral IV Insertion Adult [OM.PC] Routine Oth 06/18/20 16:23 Ordered Medication Orders Oxytocin/Lactated Ringer's (Pitocin In Lr 10 Units/1,000 Ml) 10 unit in 1,000 mls @ 12 mls/hr IV TITRATE ANNIE; Protocol Oxytocin/Lactated Ringer's (Pitocin In Lr 10 Units/1,000 Ml) 10 unit in 1,000 mls @ 500 mls/hr IV .CONTINUOUS ANNIE Lactated Ringer's (Ringers, Lactated) 1,000 mls @ 40 mls/hr IV ASDIRECTED ANNIE Nalbuphine HCl (Nubain) 10 mg IVPUSH Q2H PRN PRN Reason: Pain Ondansetron HCl (Zofran) 4 mg IVPUSH Q4H PRN PRN Reason: Nausea/Vomiting Sodium Chloride (Saline Flush) 10 ml FLUSH ASDIRECTED PRN PRN Reason: Keep Vein Open Assessment/Plan Comment:: * Labs to be done * Will monitor status closely. Baby with moderate variability and now some accelerations. Feel IOL is appropriate even with abnormal montrell ting prior. * Will perform IOL with pitocin. AROM when able * Pain management per patient preference * Anticipate
[2020-06-18] MEDS ORDERED: Oxytocin/Lactated Ringers 10 UNIT/1,000 ML BAG IV SCH ×2 (16:30)
[2020-06-18] MEDS: Lactated Ringers 1,000 ML IV SCH (17:58)
[2020-06-18] MEDS ORDERED: fentaNYL 100 MCG/2 ML SDV EPIDUR PRN (19:33)
[2020-06-18] MEDS ORDERED: Bupivacaine/fentaNYL/NS 100 ML Bag EPIDUR PRN (19:33)
[2020-06-18] MEDS ORDERED: ePHEDrine 50 MG/ML SDV IVPUSH PRN (19:33)
[2020-06-18] MEDS ORDERED: diphenhydrAMINE 50 MG/ML SDV IVPUSH PRN (19:33)
--- NOTE | 2020-06-18 19:39 | PCM.PREANE ---
Preanesthetic Assessment - Procedure Proposed Procedure: el - Anesthesia/Transfusion/Family Hx Anesthesia History: Prior Anesthesia Without Reaction Family History of Anesthesia Reaction: No Transfusion History: No Prior Transfusion(s) - Review of Systems General: No Symptoms Pulmonary: No Symptoms Cardiovascular: No Symptoms Gastrointestinal: No Symptoms Neurological: No Symptoms Other: Reports: None - Physical Assessment Vital Signs: 82 16 Height: 5 ft 4 in Weight: 83.869 kg ASA Class: 2 Mental Status: Alert & Oriented x3 Airway Class: Mallampati = 1 Dentition: Reports: Missing Tooth/Teeth (front and multiple others) Thyro-Mental Finger Breadths: 3 Mouth Opening Finger Breadths: 3 ROM/Head Extension: Full Lungs: Clear to Auscultation, Normal Respiratory Effort Cardiovascular: Regular Rate, Regular Rhythm - Lab Values: Laboratory Last Values WBC 8.05 K/mm3 (3.98-10.04) 06/18/20 16:38 RBC 4.00 M/mm3 (3.98-5.22) 06/18/20 16:38 Hgb 12.2 gm/dl (11.2-15.7) D 06/18/20 16:38 Hct 36.6 % (34.1-44.9) 06/18/20 16:38 MCV 91.5 fl (79.4-94.8) D 06/18/20 16:38 MCH 30.5 pg (25.6-32.2) 06/18/20 16:38 MCHC 33.3 g/dl (32.2-35.5) 06/18/20 16:38 RDW Std Deviation 45.1 fL (36.4-46.3) 06/18/20 16:38 Plt Count 263 K/mm3 (182-369) 06/18/20 16:38 MPV 9.4 fl (9.4-12.3) 06/18/20 16:38 Sodium 138 mEq/L (136-145) 06/18/20 16:38 Potassium 3.5 mEq/L (3.5-5.1) 06/18/20 16:38 Chloride 105 mEq/L (98-107) 06/18/20 16:38 Carbon Dioxide 20 mEq/L (21-32) L 06/18/20 16:38 Anion Gap 16.5 (5-15) H 06/18/20 16:38 BUN 6 mg/dL (7-18) L 06/18/20 16:38 Creatinine 0.5 mg/dL (0.55-1.02) L 06/18/20 16:38 Est Cr Clr Drug Dosing 152.40 mL/min 06/18/20 16:38 Estimated GFR (MDRD) > 60 mL/min (>60) 06/18/20 16:38 BUN/Creatinine Ratio 12.0 (14-18) L 06/18/20 16:38 Glucose 134 mg/dL (74-106) H 06/18/20 16:38 Calcium 8.6 mg/dL (8.5-10.1) 06/18/20 16:38 Total Bilirubin 0.4 mg/dL (0.2-1.0) 06/18/20 16:38 AST 14 U/L (15-37) L 06/18/20 16:38 ALT 19 U/L (14-59) 06/18/20 16:38 Alkaline Phosphatase 172 U/L (46-116) H 06/18/20 16:38 Total Protein 6.3 g/dl (6.4-8.2) L 06/18/20 16:38 Albumin 2.5 g/dl (3.4-5.0) L 06/18/20 16:38 Globulin 3.8 gm/dL 06/18/20 16:38 Albumin/Globulin Ratio 0.7 (1-2) L 06/18/20 16:38 SARS-CoV-2 RNA (GIORGIO) Negative (NEGATIVE) 06/18/20 16:15 Blood Type A NEGATIVE 06/18/20 16:38 Gel Antibody Screen Negative 06/18/20 16:38 - Allergies Allergies/Adverse Reactions: Allergies Allergy/AdvReac Type Severity Reaction Status Date / Time crab Allergy Airway Verified 06/18/20 17:21 Tightness latex Allergy Hives Verified 06/18/20 17:21 pineapple Allergy Airway Verified 06/18/20 17:21 Tightness - Blood Blood Available: No - Acknowledgements Anesthesia Type Planned: Epidural Pt an Appropriate Candidate for the Planned Anesthesia: Yes Alternatives and Risks of Anesthesia Discussed w Pt/Guardian: Yes Pt/Guardian Understands and Agrees with Anesthesia Plan: Yes PreAnesthesia Questionnaire - Past Health History Medical/Surgical History: Denies Medical/Surgical History HEENT History: Reports: Other (See Below) Other HEENT History: pharyngitis, tonsillectomy, ear surgery Cardiovascular History: Reports: None Respiratory History: Reports: None Gastrointestinal History: Reports: None Genitourinary History: Reports: Other (See Below) Other Genitourinary History: hesitancy 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: Other (See Below) : 1 (3 weeks) Para: 0 Other OB/BYN History: bacterial vaginosis, dysnmenorrhea, menorrhagia Musculoskeletal History: Reports: None Neurological History: Reports: None Psychiatric History: Reports: None Endocrine/Metabolic History: Reports: None Hematologic History: Reports: Other (See Below) Other Hematologic History: bone marrow procedure Immunologic History: Reports: None Oncologic (Cancer) History: Reports: None Dermatologic History: Reports: None - Past Surgical History HEENT Surgical History: Reports: Other (See Below) (cyst removed behind ear) GI Surgical History: Reports: Cholecystectomy - SUBSTANCE USE Tobacco Use Status *Q: Former Tobacco User (before preg) Tobacco Use Within Last Twelve Months: Cigarettes Second Hand Smoke Exposure: Yes Days Per Week of Alcohol Use: 0 Recreational Drug Use History: No - HOME MEDS Home Medications: Home Meds Vits #93/Iron Fum/FA [ Formula Tablet] 1 tab PO DAILY 06/04/20 [History] Aspirin 81 mg PO DAILY 06/18/20 [History] - CURRENT (IN HOUSE) MEDS Current Meds: Current Medications Oxytocin/Lactated Ringer's (Pitocin In Lr 10 Units/1,000 Ml) 10 unit in 1,000 mls @ 12 mls/hr IV TITRATE ANNIE; Protocol Last Admin: 06/18/20 17:58 Dose: 2 munits/min, 12 mls/hr Documented by: Oxytocin/Lactated Ringer's (Pitocin In Lr 10 Units/1,000 Ml) 10 unit in 1,000 mls @ 500 mls/hr IV .CONTINUOUS ANNIE Lactated Ringer's (Ringers, Lactated) 1,000 mls @ 40 mls/hr IV ASDIRECTED ANNIE Last Admin: 06/18/20 17:58 Dose: 40 mls/hr Documented by: Nalbuphine HCl (Nubain) 10 mg IVPUSH Q2H PRN PRN Reason: Pain Ondansetron HCl (Zofran) 4 mg IVPUSH Q4H PRN PRN Reason: Nausea/Vomiting Sodium Chloride (Saline Flush) 10 ml FLUSH ASDIRECTED PRN PRN Reason: Keep Vein Open
[2020-06-18] MEDS ORDERED: Acetaminophen 325 MG Tab PO ONE (20:27)
--- NOTE | 2020-06-18 23:24 | PCM.PNLD ---
Labor Progress Note - VS & Meds Active Medications: Current Medications Diphenhydramine HCl (Benadryl) 25 mg IVPUSH Q6H PRN PRN Reason: pruritis Ephedrine Sulfate (Ephedrine Sulfate) 5 mg IVPUSH ASDIRECTED PRN PRN Reason: Hypotension Fentanyl (Sublimaze) 100 mcg EPIDUR Q3H PRN PRN Reason: Pain Fentanyl/Bupivacaine HCl (Fentanyl/Bupivacaine/Ns 2 Mcg-0.125% 100 Ml) 100 ml EPIDUR ASDIRECTED PRN PRN Reason: Pain Oxytocin/Lactated Ringer's (Pitocin In Lr 10 Units/1,000 Ml) 10 unit in 1,000 mls @ 12 mls/hr IV TITRATE ANNIE; Protocol Last Titration: 06/18/20 21:56 Dose: 14 munits/min, 84 mls/hr Documented by: Oxytocin/Lactated Ringer's (Pitocin In Lr 10 Units/1,000 Ml) 10 unit in 1,000 mls @ 500 mls/hr IV .CONTINUOUS ANNIE Lactated Ringer's (Ringers, Lactated) 1,000 mls @ 40 mls/hr IV ASDIRECTED ANNIE Last Admin: 06/18/20 17:58 Dose: 40 mls/hr Documented by: Nalbuphine HCl (Nubain) 10 mg IVPUSH Q2H PRN PRN Reason: Pain Ondansetron HCl (Zofran) 4 mg IVPUSH Q4H PRN PRN Reason: Nausea/Vomiting Sodium Chloride (Saline Flush) 10 ml FLUSH ASDIRECTED PRN PRN Reason: Keep Vein Open Discontinued Medications Acetaminophen (Tylenol) 650 mg PO NOW ONE Stop: 06/18/20 20:28 Last Admin: 06/18/20 20:37 Dose: 650 mg Documented by: - Uterine Contractions Uterine Monitoring Mode: External [place] Contraction Intensity: Mild - Monitoring Monitor Mode: External Ultrasound Heart Rate (FHR) Baseline: 145 Heart Rate (FHR) Variability: Moderate (6-25 bmp) Accelerations: Present, 15x15 Decelerations: None - Vaginal Exam Dilation (cm): 3 Effacement (Percent): 75 Station: -2 Cervical Position: Midposition - Labor Progress (Free Text) Labor Progress: Doing well. Stephanie mildly with pitocin. FHR actually much more reassuring. AROM performed with release of clear fluid
[2020-06-19] MEDS ORDERED: Bupivacaine 0.25% 10 ML SDV ONE
[2020-06-19] MEDS: Lactated Ringers 1,000 ML IV SCH ×3 (00:49→08:29)
[2020-06-19] MEDS ORDERED: Oxytocin/Lactated Ringers 20 UNIT/1,000 ML BAG IV SCH (07:15)
--- NOTE | 2020-06-19 07:16 | PCM.PNLD ---
Labor Progress Note - VS & Meds Active Medications: Current Medications Diphenhydramine HCl (Benadryl) 25 mg IVPUSH Q6H PRN PRN Reason: pruritis Ephedrine Sulfate (Ephedrine Sulfate) 5 mg IVPUSH ASDIRECTED PRN PRN Reason: Hypotension Fentanyl (Sublimaze) 100 mcg EPIDUR Q3H PRN PRN Reason: Pain Last Admin: 06/19/20 00:50 Dose: 100 mcg Documented by: Fentanyl/Bupivacaine HCl (Fentanyl/Bupivacaine/Ns 2 Mcg-0.125% 100 Ml) 100 ml EPIDUR ASDIRECTED PRN PRN Reason: Pain Last Admin: 06/19/20 00:50 Dose: 100 ml Documented by: Oxytocin/Lactated Ringer's (Pitocin In Lr 10 Units/1,000 Ml) 10 unit in 1,000 mls @ 12 mls/hr IV TITRATE ANNIE; Protocol Last Titration: 06/19/20 04:30 Dose: 16 munits/min, 96 mls/hr Documented by: Oxytocin/Lactated Ringer's (Pitocin In Lr 10 Units/1,000 Ml) 10 unit in 1,000 mls @ 500 mls/hr IV .CONTINUOUS ANNIE Lactated Ringer's (Ringers, Lactated) 1,000 mls @ 40 mls/hr IV ASDIRECTED ANNIE Last Admin: 06/19/20 01:29 Dose: 999 mls/hr Documented by: Nalbuphine HCl (Nubain) 10 mg IVPUSH Q2H PRN PRN Reason: Pain Ondansetron HCl (Zofran) 4 mg IVPUSH Q4H PRN PRN Reason: Nausea/Vomiting Sodium Chloride (Saline Flush) 10 ml FLUSH ASDIRECTED PRN PRN Reason: Keep Vein Open Discontinued Medications Acetaminophen (Tylenol) 650 mg PO NOW ONE Stop: 06/18/20 20:28 Last Admin: 06/18/20 20:37 Dose: 650 mg Documented by: - Uterine Contractions Uterine Monitoring Mode: External [place] Contraction Intensity: Moderate - Monitoring Monitor Mode: External Ultrasound Heart Rate (FHR) Baseline: 145 Heart Rate (FHR) Variability: Moderate (6-25 bmp) Accelerations: Absent Decelerations: Early Strip Review: Category I - Vaginal Exam Dilation (cm): 4-5 Effacement (Percent): 85 Station: -1 Cervical Position: Anterior - Labor Progress (Free Text) Labor Progress: Doing well. Comfortable with epidural in place. Placed around 0100. Pitocin currently at 20. RN notes minimal leakage since AROM. Attempt made to find/rupture a forebag, but no additional fluid released. Continue to increase pitocin per protocol
--- NOTE | 2020-06-19 11:08 | PCM.DEL ---
L & D Note - General Info Date of Service: 06/19/20 - Delivery Note Labor: Induced by ARM, Induced by Oxytocin Delivery Outcome: Livebirth Infant Delivery Method: Spontaneous Vaginal Delivery-Single Infant Delivery Mode: Spontaneous Presentation: Left Occiput Anterior (JAZZY) Nuchal Cord: None Anesthesia Type: Epidural Amniotic Fluid Description: Clear Episiotomy Type: None Laceration: 2nd Degree, Perineal, Periurethral Suture type: Vicryl Suture size: 3-0 Placenta: Intact, Spontaneous Cord: 3 Vessels Estimated Blood Loss: 200 Resuscitation Needed: Yes [place]: Bulb Syringe, Stimulated, Warmed, [place] Used, Warmer Used Delivery Comments (Free Text/Narrative):: Patient found to be complete and began pushing. With maternal pushing effort head delivered from an JAZZY presentation. No nuchal cord present. With gentle downward traction shoulders and body delivered. placed on maternal abdomen. Cord clamped and cut. Cord blood obtained. Placenta allowed time to separate and expelled intact. inspection of the perineum showed a 2nd degree perineal laceration which was repaired with a 2-0 Vicryl in the typical running fashion. A left sided periurethral tear was reapproximated with an interrupted suture of 2-0 Vicryl. - General Info Date of Service: 06/19/20 - Patient Data Weight - Most Recent: 83.869 kg I&O - Last 24 Hours: Intake & Output 06/18/20 06/19/20 06/19/20 22:59 06:59 14:59 Intake Total 4000 Balance 4000 Lab Results Last 24 Hours: - Problem List & Annotations (1) 37 weeks gestation of SNOMED Code(s): 00601770 Code(s): Z3A.37 - 37 WEEKS GESTATION OF Status: Acute Current Visit: Yes (2) Hypertension SNOMED Code(s): 60618558 Code(s): I10 - ESSENTIAL (PRIMARY) HYPERTENSION Status: Acute Current Visit: Yes Qualifiers: Hypertension type: unspecified Qualified Code(s): I10 - Essential (primary) hypertension (3) Abnormal test SNOMED Code(s): 551650757, 608139748 Code(s): O28.9 - UNSP ABNORMAL FINDINGS ON SCREENING OF MOTHER Status: Acute Current Visit: Yes (4) Rh negative state in antepartum period SNOMED Code(s): 447048114 Code(s): O26.899 - OTH RELATED CONDITIONS, UNSPECIFIED TRIMESTER; Z67.91 - UNSPECIFIED BLOOD TYPE, RH NEGATIVE Status: Acute Current Visit: Yes - Problem List Review Problem List Initiated/Reviewed/Updated: Yes - My Orders Last 24 Hours: My Active Orders 06/18/20 16:22 Nalbuphine [Nubain] 10 mg IVPUSH Q2H PRN Ondansetron [Zofran] 4 mg IVPUSH Q4H PRN Sodium Chloride 0.9% [Saline Flush] 10 ml FLUSH ASDIRECTED PRN 06/18/20 16:23 Patient Status [ADT] Routine Communication Order [RC] ASDIRECTED Communication Order [RC] ASDIRECTED Communication Order [RC] ASDIRECTED Notify Provider [RC] ASDIRECTED Notify Provider [RC] PRN Peripheral IV Care [RC] Q2HR Electronic Heart Tones Ext w TOCO [WOMSER] Routine Electronic Heart Tones Internal [WOMSER] Per Unit Routine Peripheral IV Insertion Adult [OM.PC] Routine 06/18/20 16:24 Up ad Rashmi [RC] ASDIRECTED 06/18/20 16:30 Lactated Ringers [Ringers, Lactated] 1,000 ml IV ASDIRECTED Oxytocin/Lactated Ringers [Pitocin in LR 10 Units/1,000 ML] 10 unit in 1,000 ml IV .CONTINUOUS Oxytocin/Lactated Ringers [Pitocin in LR 10 Units/1,000 ML] 10 unit in 1,000 ml IV TITRATE 06/18/20 Dinner Regular Diet [DIET] 06/19/20 07:15 Oxytocin/Lactated Ringers [Pitocin in LR 20 Units/1,000 ML] 20 unit in 1,000 ml IV TITRATE - Assessment Assessment:: PPD#0 - Plan Plan:: * Routine cares * Breast feeding * Will assess baby blood type to see if Rhogam required * Discharge home in 2 days
[2020-06-19] MEDS ORDERED: Benzocaine/Menthol 20%-0.5% Spray 56 GM Canister TOP PRN (12:43)
[2020-06-19] MEDS: Witch Hazel Medicated Pads 40/Jar TOP PRN (14:00)
[2020-06-19] MEDS: Ibuprofen 600 MG Tab PO PRN ×2 (14:01→21:49)
[2020-06-19] MEDS: Docusate Sodium 100 MG Cap PO PRN (14:01)
[2020-06-20] MEDS: Ibuprofen 600 MG Tab PO PRN ×3 (04:44→20:32)
--- NOTE | 2020-06-20 07:10 | PCM.PNPP ---
- General Info Date of Service: 06/20/20 Functional Status: Reports: Pain Controlled, Tolerating Diet, Ambulating, Urinating - Review of Systems General: Reports: No Symptoms Pulmonary: Reports: No Symptoms Cardiovascular: Reports: No Symptoms Gastrointestinal: Reports: No Symptoms Genitourinary: Reports: No Symptoms Musculoskeletal: Reports: No Symptoms - Patient Data Vital Signs - Most Recent: Last Vital Signs Temp 36.3 C 06/20/20 04:39 Pulse 78 06/20/20 04:39 Resp 14 06/20/20 04:39 BP 123/74 06/20/20 04:39 Pulse Ox 100 06/20/20 04:39 Weight - Most Recent: 83.869 kg I&O - Last 24 Hours: Intake & Output 06/19/20 06/20/20 06/20/20 22:59 06:59 14:59 Intake Total 2 Balance 2 Lab Results - Last 24 Hours: Laboratory Results - last 24 hr 06/18/20 06/19/20 Range/Units 16:38 16:04 Blood Type A NEGATIVE Cancelled Gel Antibody Screen Negative Cancelled Screen Cancelled 0 ros/5 flds - neg RhIG Candidate? Cancelled Yes Rhogam Indicated Cancelled Med Orders - Current: Current Medications Acetaminophen (Tylenol) 650 mg PO Q4H PRN PRN Reason: mild pain or fever Benzocaine/Menthol (Dermoplast Pain Relief [place]) 0 gm TOP ASDIRECTED PRN PRN Reason: Perineal Comfort Measure Last Admin: 06/19/20 14:01 Dose: 1 can Documented by: Docusate Sodium (Colace) 100 mg PO BID PRN PRN Reason: Constipation Last Admin: 06/19/20 14:01 Dose: 100 mg Documented by: Ibuprofen (Motrin) 600 mg PO Q6H PRN PRN Reason: Mild pain or fever Last Admin: 06/20/20 04:44 Dose: 600 mg Documented by: Sara Bobby ([place]) 1 pad TOP ASDIRECTED PRN PRN Reason: Perineal Comfort Measure Last Admin: 06/19/20 14:00 Dose: 1 container Documented by: Discontinued Medications Acetaminophen (Tylenol) 650 mg PO NOW ONE Stop: 06/18/20 20:28 Last Admin: 06/18/20 20:37 Dose: 650 mg Documented by: Diphenhydramine HCl (Benadryl) 25 mg IVPUSH Q6H PRN PRN Reason: pruritis Ephedrine Sulfate (Ephedrine Sulfate) 5 mg IVPUSH ASDIRECTED PRN PRN Reason: Hypotension Fentanyl (Sublimaze) 100 mcg EPIDUR Q3H PRN PRN Reason: Pain Last Admin: 06/19/20 00:50 Dose: 100 mcg Documented by: Fentanyl/Bupivacaine HCl (Fentanyl/Bupivacaine/Ns 2 Mcg-0.125% 100 Ml) 100 ml EPIDUR ASDIRECTED PRN PRN Reason: Pain Last Admin: 06/19/20 00:50 Dose: 100 ml Documented by: Oxytocin/Lactated Ringer's (Pitocin In Lr 10 Units/1,000 Ml) 10 unit in 1,000 mls @ 12 mls/hr IV TITRATE ANNIE; Protocol Last Titration: 06/19/20 04:30 Dose: 16 munits/min, 96 mls/hr Documented by: Oxytocin/Lactated Ringer's (Pitocin In Lr 10 Units/1,000 Ml) 10 unit in 1,000 mls @ 500 mls/hr IV .CONTINUOUS ANNIE Lactated Ringer's (Ringers, Lactated) 1,000 mls @ 40 mls/hr IV ASDIRECTED ANNIE Last Admin: 06/19/20 08:29 Dose: 40 mls/hr Documented by: Oxytocin/Lactated Ringer's (Pitocin In Lr 20 Units/1,000 Ml) 20 unit in 1,000 mls @ 60 mls/hr IV TITRATE ANNIE; Protocol Last Admin: 06/19/20 08:29 Dose: 60 mls/hr Documented by: Nalbuphine HCl (Nubain) 10 mg IVPUSH Q2H PRN PRN Reason: Pain Ondansetron HCl (Zofran) 4 mg IVPUSH Q4H PRN PRN Reason: Nausea/Vomiting Sodium Chloride (Saline Flush) 10 ml FLUSH ASDIRECTED PRN PRN Reason: Keep Vein Open - Infant Interaction Disposition, : in Room with Family Interaction: Holding Infant Feeding: Attempted ; Nursed Fair/Poor Support Person: Significant Other - Recovery Exam Fundal Tone: Firm Fundal Level: 1 Fingerbreadths Below Umbilicus Fundal Placement: Midline Lochia Amount: Small Lochia Color: Rubra/Red Perineum Description: Other (see below) Other Perinuem Description: 2nd degree laceration with repair Episiotomy/Laceration: Approximated Bladder Status: Voiding - Exam General: Alert, Oriented, Cooperative GI/Abdominal Exam: Soft, Non-Tender Extremities: Normal Inspection Skin: Warm, Dry, Intact - Problem List & Annotations (1) 37 weeks gestation of SNOMED Code(s): 00242640 Code(s): Z3A.37 - 37 WEEKS GESTATION OF Status: Acute Current Visit: Yes (2) Hypertension SNOMED Code(s): 20468819 Code(s): I10 - ESSENTIAL (PRIMARY) HYPERTENSION Status: Acute Current Visit: Yes Qualifiers: Hypertension type: unspecified Qualified Code(s): I10 - Essential (primary) hypertension (3) Abnormal test SNOMED Code(s): 846612591, 209638642 Code(s): O28.9 - UNSP ABNORMAL FINDINGS ON SCREENING OF MOTHER Status: Acute Current Visit: Yes (4) Rh negative state in antepartum period SNOMED Code(s): 825704829 Code(s): O26.899 - OTH RELATED CONDITIONS, UNSPECIFIED TRIMESTER; Z67.91 - UNSPECIFIED BLOOD TYPE, RH NEGATIVE Status: Acute Current Visit: Yes - Problem List Review Problem List Initiated/Reviewed/Updated: Yes - My Orders Last 24 Hours: My Active Orders 06/19/20 Lunch Regular Diet [DIET] 06/19/20 12:43 Acetaminophen [TylenoL] 650 mg PO Q4H PRN Benzocaine/Menthol [Dermoplast Pain Relief [place]] See Dose Instructions TOP ASDIRECTED PRN Docusate Sodium [Colace] 100 mg PO BID PRN Ibuprofen [Motrin] 600 mg PO Q6H PRN witch [place] [Tucks] 1 pad TOP ASDIRECTED PRN Heat Therapy [OM.PC] PRN 06/19/20 12:43 Activity as Tolerated [RC] PER UNIT ROUTINE Vital Signs [RC] 03,09,15,21 Assess Lochia [WOMSER] Per Unit Routine Assess Uterine Involution [WOMSER] Per Unit Routine Breast Pump [WOMSER] Per Unit Routine Ice Therapy [OM.PC] Per Unit Routine Perineal Care [OM.PC] Per Unit Routine Peripheral IV Discontinue [OM.PC] Routine Sitz Bath [OM.PC] Per Unit Routine 06/19/20 16:04 SCREEN [BBK] Stat RH IMMUNE GLOBULIN [BBK] Stat 06/20/20 12:43 Heat Therapy [OM.SAMMY] PRN - Assessment Assessment:: PPD#1 - Plan Plan:: * Routine cares * Breast feeding * Baby Rh positive, will receive Rhogam * Discharge home tomorrow
[2020-06-20] MEDS: Acetaminophen 325 MG Tab PO PRN (09:51)
[2020-06-20] MEDS: Witch Hazel Medicated Pads 40/Jar TOP PRN (21:57)
[2020-06-21] MEDS: Acetaminophen 325 MG Tab PO PRN (00:45)
[2020-06-21] MEDS: Docusate Sodium 100 MG Cap PO PRN (00:45)
[2020-06-21] MEDS: Ibuprofen 600 MG Tab PO PRN (03:18)
--- NOTE | 2020-06-21 08:44 | PCM.DCSUM1 ---
Discharge Summary - Hospital Course Diagnosis: Stroke: No - Discharge Data Discharge Date: 06/21/20 Discharge Disposition: Home, Self-Care 01 Condition: Good - Referral to Home Health Primary Care Physician: Anna Ding MD - Patient Summary/Data Hospital Course: Discharged home on PPD2. Uncomplicated course - Patient Instructions Driving: May Drive Today - Discharge Plan *PRESCRIPTION DRUG MONITORING PROGRAM REVIEWED*: No Home Medications: Home Meds Vits #93/Iron Fum/FA [ Formula Tablet] 1 tab PO DAILY 06/04/20 [History] Aspirin 81 mg PO DAILY 06/18/20 [History] - Discharge Summary/Plan Comment DC Time >30 min.: No - Patient Data Vitals - Most Recent: Last Vital Signs Temp 36.3 C 06/21/20 02:56 Pulse 67 06/21/20 02:56 Resp 14 06/21/20 02:56 BP 122/71 06/21/20 02:56 Pulse Ox 99 06/21/20 02:56 Weight - Most Recent: 83.869 kg I&O - Last 24 hours: Intake & Output 06/20/20 06/21/20 06/21/20 22:59 06:59 14:59 Intake Total 60 Balance 60 Med Orders - Current: Current Medications Acetaminophen (Tylenol) 650 mg PO Q4H PRN PRN Reason: mild pain or fever Last Admin: 06/21/20 00:45 Dose: 650 mg Documented by: Benzocaine/Menthol (Dermoplast Pain Relief [place]) 0 gm TOP ASDIRECTED PRN PRN Reason: Perineal Comfort Measure Last Admin: 06/19/20 14:01 Dose: 1 can Documented by: Docusate Sodium (Colace) 100 mg PO BID PRN PRN Reason: Constipation Last Admin: 06/21/20 00:45 Dose: 100 mg Documented by: Ibuprofen (Motrin) 600 mg PO Q6H PRN PRN Reason: Mild pain or fever Last Admin: 06/21/20 03:18 Dose: 600 mg Documented by: Sara Bobby (Tucks) 1 pad TOP ASDIRECTED PRN PRN Reason: Perineal Comfort Measure Last Admin: 06/20/20 21:57 Dose: 1 container Documented by: Discontinued Medications Acetaminophen (Tylenol) 650 mg PO NOW ONE Stop: 06/18/20 20:28 Last Admin: 06/18/20 20:37 Dose: 650 mg Documented by: Bupivacaine HCl (Sensorcaine-Mpf 0.25%) 10 ml .ROUTE .[facility] ONE Stop: 06/19/20 00:01 Diphenhydramine HCl (Benadryl) 25 mg IVPUSH Q6H PRN PRN Reason: pruritis Ephedrine Sulfate (Ephedrine Sulfate) 5 mg IVPUSH ASDIRECTED PRN PRN Reason: Hypotension Fentanyl (Sublimaze) 100 mcg EPIDUR Q3H PRN PRN Reason: Pain Last Admin: 06/19/20 00:50 Dose: 100 mcg Documented by: Fentanyl/Bupivacaine HCl (Fentanyl/Bupivacaine/Ns 2 Mcg-0.125% 100 Ml) 100 ml EPIDUR ASDIRECTED PRN PRN Reason: Pain Last Admin: 06/19/20 00:50 Dose: 100 ml Documented by: Oxytocin/Lactated Ringer's (Pitocin In Lr 10 Units/1,000 Ml) 10 unit in 1,000 mls @ 12 mls/hr IV TITRATE ANNIE; Protocol Last Titration: 06/19/20 04:30 Dose: 16 munits/min, 96 mls/hr Documented by: Oxytocin/Lactated Ringer's (Pitocin In Lr 10 Units/1,000 Ml) 10 unit in 1,000 mls @ 500 mls/hr IV .CONTINUOUS ANNIE Lactated Ringer's (Ringers, Lactated) 1,000 mls @ 40 mls/hr IV ASDIRECTED ANNIE Last Admin: 06/19/20 08:29 Dose: 40 mls/hr Documented by: Oxytocin/Lactated Ringer's (Pitocin In Lr 20 Units/1,000 Ml) 20 unit in 1,000 mls @ 60 mls/hr IV TITRATE ANNIE; Protocol Last Admin: 06/19/20 08:29 Dose: 60 mls/hr Documented by: Nalbuphine HCl (Nubain) 10 mg IVPUSH Q2H PRN PRN Reason: Pain Ondansetron HCl (Zofran) 4 mg IVPUSH Q4H PRN PRN Reason: Nausea/Vomiting Sodium Chloride (Saline Flush) 10 ml FLUSH ASDIRECTED PRN PRN Reason: Keep Vein Open
[2020-06-21 12:37] VITALS: BP 116/59; PULSE 71
== END 2020-06-21 12:00 | disposition home or self-care (01) | DRG 807 ==
LOC: JD.OBCHECK 15:54 → JD.OB 15:57 → JD.OBCHECK 16:00 → JD.OB 16:00 → OBSVTOIN 06-19 10:52 → JD.MS 06-19 11:17 → JD.OB 06-19 14:16
PROVIDERS: ADMIT Obstetrics & Gynecology; ATTEND Obstetrics & Gynecology
PROC: 10E0XZZ Delivery of Products of Conception, External Approach (ICD-10-PCS; principal; 2020-06-19)
PROC: 0KQM0ZZ Repair Perineum Muscle, Open Approach (ICD-10-PCS; 2020-06-19)
PROC: 10907ZC Drainage of Amniotic Fluid, Therapeutic from Products of Conception, Via Natural or Artificial Opening (ICD-10-PCS; 2020-06-19)
PROC: 3E033VJ Introduction of Other Hormone into Peripheral Vein, Percutaneous Approach (ICD-10-PCS; 2020-06-19)
PROC: 0UQMXZZ Repair Vulva, External Approach (ICD-10-PCS; 2020-06-19)
PROC: 3E0R3BZ Introduction of Anesthetic Agent into Spinal Canal, Percutaneous Approach (ICD-10-PCS; 2020-06-19)
PROC: 00HU33Z Insertion of Infusion Device into Spinal Canal, Percutaneous Approach (ICD-10-PCS; 2020-06-19)
DX: O28.9 Unspecified abnormal findings on antenatal screening of mother (principal); Z37.0 Single live birth; O16.4 Unspecified maternal hypertension, complicating childbirth; O70.1 Second degree perineal laceration during delivery; O71.82 Other specified trauma to perineum and vulva; Z20.828 Contact with and (suspected) exposure to other viral communicable diseases; Z3A.37 37 weeks gestation of pregnancy; Z87.891 Personal history of nicotine dependence; Z91.018 Allergy to other foods
CPT/HCPCS: 01967; 36415; 51702; 59025; 59409; 80053; 85027; 85461; 86592; 86850; 86900; 86901; A9270-GY; J2590; J2790; J3010; J3490; J7120; U0002

== ENCOUNTER 2021-01-21 22:33 | Emergency (ER) | payer MEDICAID ==
[2021-01-21 22:48] VITALS: BP 149/97; PULSE 111
[2021-01-21] MEDS ORDERED: Acetaminophen/HYDROcodone 325-5 MG Tab PO ONE (22:49)
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
--- NOTE | 2021-01-22 07:59 | CR ---
Ankle: 4 views which on exam state left ankle but request states right ankle. Please correlate. Ankle mortise is symmetric. Small bony densities are noted off the dorsal and distal talus as well as off the distal calcaneus. These are suspicious for small fractures. Soft tissue swelling is noted. Lateral and medial malleoli appear intact. No additional abnormality is appreciated. Impression: 1. Small fractures are seen involving the dorsal and distal talus as well as the very distal calcaneus. 2. Soft tissue swelling. Diagnostic code #3
== END 2021-01-22 00:10 | disposition home or self-care (01) ==
LOC: JD.ED 22:33
DX: S93.401A Sprain of unspecified ligament of right ankle, initial encounter (principal); I10 Essential (primary) hypertension; Z91.013 Allergy to seafood; Z91.040 Latex allergy status; Z91.018 Allergy to other foods; X50.1XXA Overexertion from prolonged static or awkward postures, initial encounter
CPT/HCPCS: 73610; 99283; A9270